=== PATIENT | female | born 1975 | race Caucasian/White ===

== ENCOUNTER 2016-12-19 08:52 | Emergency (ER) | payer BC ==
[~2016-12-19] VITALS: Ht 157.5 cm; Wt 92.1 kg
[~2016-12-19 08:52] MED LIST: ACCUNEB SO1.25 MG/1 INH; B-100 COMPLEX1 EAC1 PO; BUPROPION; BUSPAR 5 MG TABL5 M1 PO; CIPROFLOXACIN500 M1 PO; ESTRADIOL1 EAC5 TOP; ESTROGEN PATCH; FIORICET; FOLIC ACID0.4 MG PO; GRAM-O-LECI1000 MG PO; HYDROXYCHLOROQ200 M1 PO; IMITREX 50 MG T50 M1 PO; LIDODERM; MECLIZINE HCL25 M1 PO; METHOTREXATE 22.5 M1 PO; MOTION RELIEF25 MG PO; NEURONTIN 300300 M1 PO; NEURONTIN600 MG PO; NEXIUM 40 MG CA40 M1 PO; NORFLEX100 MG PO; NUCYNTA50 MG PO; PHENERGAN 25 MG25 M1 PO; PREDNISONE 10 M10 M1 PO; PREDNISONE50 MG PO; PROVENT SR1 EACH; QVAR HFA 440 MCG/UN1 INH; SALAGEN5 MG PO; SAVELLA1 EACH; SERTRALINE HCL50 MG PO; TIZANIDINE; TOPAMAX; TOPAMAX 25 MG T25 M1 PO; TORADOL 10 MG T10 MG PO; TRAMADOL 50 MG50 MG PO; VERAPAMIL ER100 MG PO; VERAPAMIL ER120 M1 PO; VITAMIN B12 PO; VITAMIN D 5050000 I1 PO; WELLBUTRIN XL150 M1; ZOLOFT25 MG PO; [UNRECOGNIZED DRUG - OTHER] INH
[2016-12-19] MEDS ORDERED: AUGMENTIN 875875 MG PO (09:15)
== END 2016-12-19 11:49 | disposition home or self-care (01) ==
LOC: ER 08:52
DX: S61.451A Open bite of right hand, initial encounter (principal); W55.01XA Bitten by cat, initial encounter; Z90.710 Acquired absence of both cervix and uterus; Z88.5 Allergy status to narcotic agent; Z88.1 Allergy status to other antibiotic agents; Z88.8 Allergy status to other drugs, medicaments and biological substances; F17.210 Nicotine dependence, cigarettes, uncomplicated; F10.99 Alcohol use, unspecified with unspecified alcohol-induced disorder; Y93.89 Activity, other specified; Y92.89 Other specified places as the place of occurrence of the external cause; Y99.8 Other external cause status